=== PATIENT | male | born 1950 | race Caucasian/White ===

== ENCOUNTER 2017-09-27 18:20 | Emergency (ER) | payer OTHER ==
[~2017-09-27] VITALS: Ht 180.3 cm; Wt 105.9 kg
[~2017-09-27 18:20] MED LIST: COUMADIN10 MG PO; LISINOPRIL-HCT1 EACH
[2017-09-27 19:09] LABS: HEMATOCRIT 38.6 % (38.0-50.0); HEMOGLOBIN 13.5 G/DL (12.5-16.6); MCH 31.1 PG (29.0-34.0); MCV 88.9 FL (86-99); PLATELET COUNT 215 K/uL (156-360); RBC DIS.WIDTH-CV 13.7 % (11.8-14.6); RBC DIS.WIDTH-SD 44.8 % (39-53); RED BLOOD COUNT 4.34 M/uL (4.00-5.50); WHITE BLOOD COUNT 7.9 K/uL (4.1-10.2)
[2017-09-27 20:03] LABS: CHLORIDE 105 mEq/L (99-109); POTASSIUM 4.3 mEq/L (3.7-5.4); SODIUM 140 mEq/L (136-147)
[2017-09-27 20:05] LABS: GLUCOSE 110 mg/dL (70-99)
[2017-09-27 20:09] LABS: CREATININE 1.1 mg/dL (0.6-1.3); GFR ESTIMATE (CALCULATED) > 59 mL/min/ (58.99-99999)
[2017-09-27 20:10] LABS: UREA NITROGEN (BUN) 14 mg/dL (9-23)
[2017-09-27] MEDS ORDERED: AUGMENTIN875 MG PO (20:37)
[2017-09-27] MEDS ORDERED: FLONASE16 G1 BOTH NARES (20:37)
[2017-09-27] MEDS ORDERED: VENTOLIN HFA18 GM IH (20:37)
[2017-09-27 20:54] VITALS: BP 132/95
== END 2017-09-27 20:55 | disposition home or self-care (01) ==
LOC: EME 18:20
PROVIDERS: Nurse Practitioner Family
DX: J32.9 Chronic sinusitis, unspecified (principal); R05 Cough; I10 Essential (primary) hypertension; F17.200 Nicotine dependence, unspecified, uncomplicated; Z86.718 Personal history of other venous thrombosis and embolism; Z79.01 Long term (current) use of anticoagulants
CPT/HCPCS: 71046; 80048; 85027; 94640; 99281; 99284